=== PATIENT | female | born 1990 | race Caucasian/White ===

== ENCOUNTER 2017-03-03 19:22 | Emergency (ER) | payer SELFPAY ==
[~2017-03-03] VITALS: Ht 160 cm; Wt 54.4 kg
[2017-03-03 19:22] VITALS: BP 136/83
--- NOTE | 2017-03-03 19:48 | NUR ---
RN AT BEDSIDE TO MEDICATE PT.
--- NOTE | 2017-03-03 21:59 | NUR ---
IV removed. Catheter intact and site benign. Pressure and 4x4 applied to site. No bleeding noted. Patient discharged to home in stable condition. Written and verbal after care instructions given. Patient verbalizes understanding of instruction. advice pt not to drive or operate any machinery due to pt was given benadryl. pt verbalize understanding.
== END 2017-03-03 22:01 | disposition home or self-care (01) ==
LOC: ER 19:23
DX: T78.1XXA Other adverse food reactions, not elsewhere classified, initial encounter (principal); F41.9 Anxiety disorder, unspecified; Y92.89 Other specified places as the place of occurrence of the external cause
CPT/HCPCS: A4606; J1200; J3490; J7030; Z7610